=== PATIENT | female | born 1975 | race Caucasian/White ===

== ENCOUNTER 2020-04-19 15:27 | Emergency (ER) | payer BC ==
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
== END 2020-04-19 18:53 | disposition home or self-care (01) ==
LOC: ERS 15:27
DX: S22.42XA Multiple fractures of ribs, left side, initial encounter for closed fracture (principal); S70.12XA Contusion of left thigh, initial encounter; S20.412A Abrasion of left back wall of thorax, initial encounter; S40.021A Contusion of right upper arm, initial encounter; M25.531 Pain in right wrist; V29.9XXA Motorcycle rider (driver) (passenger) injured in unspecified traffic accident, initial encounter
CPT/HCPCS: G0390